=== PATIENT | male | born 1965 | race American Indian/Alaskan Native ===

== ENCOUNTER 2017-07-29 15:16 | Outpatient (CLI) | payer OTHER ==
[2017-07-29 16:07] LABS: Blood Urea Nitrogen 12 mg/dL (9-20)
--- NOTE | 2017-07-30 08:54 | Magnetic Resonance Report ---
MRI BRAIN WITH/WITHOUT CONTRAST: History: Tinnitus with new onset hearing deficit. Technique: Multiple T1 and T2 weighted images were obtained in multiple planes. Axial diffusion and gradient imaging was performed. Post contrast T1 images in two planes were obtained following IV gadolinium. Findings: There are minimal scattered T2 signal abnormalities in the periventricular and subcortical white matter primarily within the frontal and parietal lobes. This is most consistent with chronic microvascular ischemic disease. This appears appropriate for this persons age. The remaining brain parenchyma demonstrates normal signal on all sequences. No diffusion restriction, hemorrhage, mass effect or extra-axial fluid collection. Ventricular size is normal and symmetric. The basal cisterns are clear. The brainstem and cerebellar hemispheres are within normal limits. The fourth ventricle is midline. Thin collimation images were obtained through the internal auditory canals. The cranial 7/VIII nerve complexes are symmetric and unremarkable. No acoustic neuroma or abnormal enhancement is appreciated. The paranasal sinuses and mastoid air cells are well aerated. Middle ear contents are unremarkable. Normal flow voids are identified in the appropriate vessels at the [place]. No abnormal enhancement is identified following IV gadolinium. Impression: Minimal nonspecific chronic white matter changes which appear appropriate for this persons age. Essentially normal MR brain. Normal examination of the internal auditory canals. No clear explanation for tinnitus or hearing loss.
== END 2017-07-29 15:17 | disposition home or self-care (01) ==
LOC: MRI 15:16
PROVIDERS: ATTEND Internal Medicine
DX: H93.19 Tinnitus, unspecified ear (principal); I10 Essential (primary) hypertension
CPT/HCPCS: 36415; 70553; 82565; 84520; A9577